=== PATIENT | female | born 1955 | race Caucasian/White ===

== ENCOUNTER 2017-05-04 09:59 | Day surgery (SDC) | payer OTHER ==
[~2017-05-04 09:59] MED LIST: CEFAZOLIN 1 GM INJ
[2017-05-04] MEDS ORDERED: SOD CHLORIDE 0.9% 1,000 ML IV (10:00)
[2017-05-04] MEDS: CEFAZOLIN 2 GM/50 ML (PMX) 50 ML IVPB (10:00)
[2017-05-04 10:40] LABS: ADD MAN DIFF? NO
[2017-05-04] MEDS: STERILE WATER 1L IRRIG BTL IRR (10:58)
[2017-05-04 11:06] LABS: ALANINE AMINOTRANSFERASE 40 IU/L (13-69); ALBUMIN 4.1 g/dl (3.3-4.9); ALBUMIN/GLOBULIN RATIO 1.32; ALKALINE PHOSPHATASE 106 IU/L (42-121); ANION GAP 12 (8-16); ASPARTATE AMINO TRANSFERASE 28 IU/L (15-46); BILIRUBIN,INDIRECT 0.4 mg/dl (0-1.1); BILIRUBIN,TOTAL 0.4 mg/dl (0.2-1.3); CARBON DIOXIDE 29 mmol/L (21-31); CHLORIDE 104 mmol/L (97-110); GLUCOSE 99 mg/dl (70-220); INR 0.86; PROTIME 11.8 Sec (11.9-14.9); PT RATIO 0.9; TOTAL PROTEIN 7.2 g/dl (6.1-8.1)
[2017-05-04 11:08] LABS: BLOOD UREA NITROGEN 15 mg/dl (7-20); CALCIUM 8.6 mg/dl (8.4-10.2); CREATININE 0.63 mg/dl (0.44-1.00); POTASSIUM 4.4 mmol/L (3.5-5.1); SODIUM 141 mmol/L (135-144)
[2017-05-04] MEDS ORDERED: ISOSULFAN BLUE 1% 5 ML INJ SC (11:11)
[2017-05-04 11:12] LABS: WHITE BLOOD COUNT 6.9 10^3/ul (4.8-10.8)
[2017-05-04 11:12] LABS: BASOPHILS % 0.3 % (0.0-2.0); EOSINOPHILS # 0.3 10^3/ul (0.0-0.5); EOSINOPHILS % 3.6 % (0.0-7.0); HEMATOCRIT 40.1 % (37.0-47.0); HEMOGLOBIN 13.2 g/dl (12.0-16.0); LYMPHOCYTES # 2.3 10^3/ul (0.8-2.9); LYMPHOCYTES % 32.8 % (15.0-51.0); MEAN CORPUSCULAR HEMOGLOBIN 29.7 pg (29.0-33.0); MEAN CORPUSCULAR HGB CONC 32.9 g/dl (32.0-37.0); MEAN CORPUSCULAR VOLUME 90.1 fl (82.0-101.0); MEAN PLATELET VOLUME 10.1 fl (7.4-10.4); MONOCYTE # 0.5 10^3/ul (0.3-0.9); NEUTROPHIL # 3.9 10^3/ul (1.6-7.5); NEUTROPHILS % 56.2 % (39.0-77.0); PLATELET COUNT 242 10^3/UL (140-415); RED BLOOD COUNT 4.45 10^6/ul (4.20-5.40); RED CELL DISTRIBUTION WIDTH 13.2 % (11.5-14.5)
[2017-05-04 11:36] LABS: CARCINOEMBRYONIC ANTIGEN 3.7 ng/ml (0.0-5.0)
[2017-05-04] MEDS ORDERED: MIDAZOLAM 1 MG/ML 2 ML INJ (11:43)
[2017-05-04] MEDS ORDERED: FENTAnyl 50 MCG/ML VIAL ×2 (11:43→12:39)
[2017-05-04] MEDS ORDERED: PROPOFOL 20 ML (12:11)
[2017-05-04] MEDS ORDERED: ROCURONIUM 50 MG INJ (12:11)
[2017-05-04] MEDS ORDERED: ONDANSETRON 4 MG INJ (12:11)
[2017-05-04] MEDS ORDERED: METOCLOPRAMIDE 10 MG INJ (12:12)
[2017-05-04] MEDS ORDERED: DEXAMETHASONE 4 MG/ML 1 ML INJ (12:12)
[2017-05-04] MEDS ORDERED: KETOROLAC 30 MG INJ (12:12)
[2017-05-04] MEDS ORDERED: MEPERIDINE 25 MG INJ IV (13:00)
[2017-05-04] MEDS ORDERED: DIPHENHYDRAMINE 50 MG INJ IV (13:00)
[2017-05-04] MEDS ORDERED: HYDROmorphONE (0.2 MG/ML) 10ML SYG IV ×2 (13:00)
[2017-05-04] MEDS ORDERED: EPHEDrine SULFATE 50 MG/5 ML SYG IV (13:00)
[2017-05-04] MEDS ORDERED: METOCLOPRAMIDE 10 MG INJ IV (13:00)
[2017-05-04] MEDS ORDERED: FENTAnyl 50 MCG/ML VIAL IV ×3 (13:00)
[2017-05-04] MEDS: ONDANSETRON 4 MG INJ IV (13:38)
[2017-05-04] MEDS: HYDROmorphONE (0.2 MG/ML) 10ML SYG IV ×2 (13:41→13:58)
[2017-05-04] MEDS: HYDROCODONE/APAP (7.5/325) TAB PO (14:54)
== END 2017-05-04 15:32 | disposition home or self-care (01) ==
LOC: SDS 09:59
DX: N64.1 Fat necrosis of breast (principal); Z85.3 Personal history of malignant neoplasm of breast
CPT/HCPCS: 19301; 71045; 80053; 82378; 85025; 85610; 85730; 88307; 88341; 88342; 93005